=== PATIENT | male | born 2000 | race African-American/Black ===

== ENCOUNTER 2019-03-29 18:22 | Emergency (ER) | payer OTHER ==
[~2019-03-29] VITALS: Ht 188 cm; Wt 68.0 kg
[2019-03-29] MEDS ORDERED: ACETAMINOPHEN 325 MG TAB PO ONE (19:00)
[2019-03-29 19:29] LABS: Hematocrit 48.3 % (41.0-53.0); Hemoglobin 16.5 g/dL (13.5-17.5); Mean Corpuscular Hgb Conc. 34.1 g/dL (32.0-36.0); Platelet Count (auto) 177 10^3/uL (140-450); Red Blood Cells 5.68 10^6/uL (4.5-5.90); Red Cell Distribution Width 12.6 % (11.8-14.3); White Blood Cell 5.4 10^3/uL (4.4-10.8)
[2019-03-29] MEDS ORDERED: SODIUM CHLORIDE 0.9% 1,000 ML IV ONE ×2 (19:30→21:15)
[2019-03-29 19:46] LABS: Basophils % (manual) 0 (0.0-2.0); Blast Cells 0; Metamyelocytes % 0; Myelocytes % 0; Promyelocytes % 0
[2019-03-29 19:55] LABS: Albumin 4.3 g/dL (3.4-5.0); BUN/Creatinine Ratio 9.8; Calcium 8.7 mg/dL (8.5-10.1); Potassium 3.1 mmol/L (3.5-5.1)
[2019-03-29 19:57] LABS: Bilirubin, Total 0.6 mg/dL (0.2-1.0); Total Protein 8.6 g/dL (6.4-8.2)
[2019-03-29 20:37] LABS: Band Neutrophils % (manual) 4; Eosinophils % (manual) 1 (0-7); Lymphocytes % (manual) 30 (10.0-50.0); Monocytes % (manual) 15 (0-12)
[2019-03-29 20:38] LABS: Reactive Lymphocytes 2
[2019-03-29] MEDS ORDERED: cefTRIAXone 1GM/50ML D5W 50 ML IV ONE (21:15)
[2019-03-29] MEDS ORDERED: ONDANSETRON HCL 4 MG/2 ML VIAL IV ONE (21:15)
[2019-03-29] MEDS ORDERED: MORPHINE SULFATE 4 MG/ML SYR/VIAL IV ONE (21:15)
[2019-03-29] MEDS: LIDOCAINE 2% (LOCAL ANESTH.) PF 5ml SDV ONE ×2 (21:23→23:00)
[2019-03-30 00:03] LABS: Protein, CSF 106.3 mg/dL (15-45)
[2019-03-30 00:22] LABS: Urine Bacteria FEW /hpf (None Seen); Urine Blood Negative /uL (Negative); Urine Mucus FEW (None Seen); Urine Specific Gravity 1.017 (1.001-1.035); Urine WBC 2 /hpf (0 - 3)
[2019-03-30 00:52] LABS: CSF White Blood Cells 105.6 CUMM (0-5)
[2019-03-30 07:10] VITALS: BP 138/80
== END 2019-03-30 07:39 | disposition short-term general hospital (02) ==
LOC: ER 18:26 → UNDOADMIN 18:27 → TELE 18:27 → ER 03-30 07:39
DX: G03.9 Meningitis, unspecified (principal)
CPT/HCPCS: 36415; 70450; 71045; 80053; 81001; 82945; 84157; 85007; 85027; 87040; 87070; 87086; 87205; 89051; 99285; J2001; J7030